=== PATIENT | female | born 1955 | race Hispanic/Latino ===

== ENCOUNTER 2019-03-05 23:52 | Emergency (ER) | payer MEDICARE, SELFPAY ==
[~2019-03-05 23:52] MED LIST: ASPI-1026 PO; CLOP75TA14 PO; FLUT16H NASAL; HYDR25TA PO; INSNOV SQ; INSU100V12 SQ; LOSA50TA64 PO; MULT-1203 PO; OMEG100033 PO; PRAV40TA3 PO; RANI150T7 PO; SERT50TA12 PO; vit d PO
== END 2019-03-06 01:21 | disposition home or self-care (01) ==
LOC: EDH 23:52
DX: S00.12XA Contusion of left eyelid and periocular area, initial encounter (principal); E11.9 Type 2 diabetes mellitus without complications; I10 Essential (primary) hypertension; F32.9 Major depressive disorder, single episode, unspecified; E78.00 Pure hypercholesterolemia, unspecified; Z90.710 Acquired absence of both cervix and uterus; Z88.0 Allergy status to penicillin; Z88.1 Allergy status to other antibiotic agents; Z88.5 Allergy status to narcotic agent; Z88.8 Allergy status to other drugs, medicaments and biological substances; W01.198A Fall on same level from slipping, tripping and stumbling with subsequent striking against other object, initial encounter; Y93.01 Activity, walking, marching and hiking; Y92.89 Other specified places as the place of occurrence of the external cause; Y99.8 Other external cause status
CPT/HCPCS: 70450; 70486; 72125